=== PATIENT | female | born 1995 | race Caucasian/White ===

== ENCOUNTER 2017-05-20 11:10 | Emergency (ER) | payer BC ==
[~2017-05-20] VITALS: Wt 56.1 kg
[~2017-05-20 11:10] MED LIST: FERR-18 PO; FOLI-49 PO; PREN1TAB49 PO
--- NOTE | 2017-05-20 12:23 | ERD ---
ER Documentation Chief Complaint Chief Complaint 8 WEEKS WITH SPOTTING HPI 18-year-old female who is A2 8 weeks is presenting with vaginal bleeding, as well as pelvic pain starting today. Patient reports a similar episode occurred when she was 4 weeks with evidence of from a fall, today she comes in with suprapubic pelvic cramping, vaginal bleeding is of regular And is of bright red blood. She states that she fell 4 weeks ago and then she had an ultrasound done with her OB that showed that she was no heartbeat and was told that this will likely result in a miscarriage that she missed her appointment to follow-up with them because her daughter became sick and was admitted to the hospital. She denies any fevers, chills, chest pain, shortness breath or dizziness. Patient's OB is Dr. Lee. ROS All systems reviewed and are negative except as per history of present illness. Medications Home Meds Active Scripts Cephalexin* (Keflex*) 500 Mg Capsule, 500 MG PO TID for 7 Days, CAP Prov:GRAYSON KAUR PA-C 05/20/17 Reported Medications Ferrous Sulfate (Iron) 325 Mg Tablet, 325 MG PO DAILY 07/08/11 Folic Acid* (Folic Acid*) 1 Mg Tablet, 1 MG PO DAILY 07/08/11 Vits W-Ca,Fe,Fa(<1MG) () 1 Tab Tablet, 1 TAB PO DAILY 07/01/11 Allergies Allergies: Coded Allergies: No Known Allergy (Unverified , 02/25/13) PMhx/Soc History of Surgery: No Anesthesia Reaction: No Hx Neurological Disorder: No Hx Respiratory Disorders: No Hx Cardiac Disorders: No Hx Psychiatric Problems: No Hx Miscellaneous Medical Probl: No Hx Alcohol Use: No Hx Substance Use: No Hx Tobacco Use: No Physical Exam Vitals Vital Signs Date Time Temp Pulse Resp B/P Pulse Ox O2 Delivery O2 Flow Rate FiO2 05/20/17 11:13 99.0 74 18 123/82 99 Physical Exam General: Well-developed, well-nourished. The patient appears in no acute distress. HEENT: Head is normocephalic, atraumatic. No scleral icterus. Neck: Supple. Nontender. Lungs: Clear to auscultation. Normal air movement. Heart: Regular rate and rhythm. S1 and S2 are normal. No murmurs, gallops, or rubs. Abdomen: Soft, nontender, nondistended. Bowel sounds are normoactive. Extremities: No clubbing or cyanosis. Normal pulses. Moving extremities x 4. No weakness. Neurologic: Alert and oriented 3. No focal deficits. Skin: Normal turgor. No rash or lesions. Result Diagram: 05/20/17 1245 Results 24 hrs DIAGNOSTIC IMAGING REPORT Patient: JUSTO TAYLOR : 1995 Age: 21 Sex: F MR #: [id number] DOS: 05/20/17 1212 Ordering MD: GRAYSON KAUR PA-C Location: [facility] Room/Bed: PROCEDURE: US OB. CLINICAL INDICATION: Vaginal bleeding TECHNIQUE: Transabdominal and transvaginal views of the pelvis are available for review. COMPARISON: No prior studies are available for comparison. FINDINGS: There is an intrauterine gestation with the crown-rump length measuring 1.9 cm, corresponding to a gestational age of 8 weeks and 0 days. There is a second pole and second yolk sac noted within the same gestational sac. The pole measures 0.7 cm. There are no heart tones noted in the second embryo. The heart rate is noted at 168 bpm. The right ovary is normal and measures 2.9 x 1.8 x 2.3 cm. The left ovary was not visualized. There is no free fluid. RPTAT: AA IMPRESSION: Live intrauterine with an estimated gestational age of 8 weeks and 0 days, based on ultrasound measurements. Probable second nonviable embryo noted. LUANN based on ultrasound measurements is 12/30/17. Close follow-up is recommended. .Shawn Knight MD, MD Date Time Electronically viewed and signed by .Shawn Kinght MD, MD on 05/20/2017 13: 47 .S/ CC: GRAYSON KAUR PA-C Laboratory Tests Test 05/20/17 12:45 White Blood Count 9.010^3/ul Red Blood Count 4.3110^6/ul Hemoglobin 11.7g/dl Hematocrit 35.2% Mean Corpuscular Volume 81.7fl Mean Corpuscular Hemoglobin 27.1pg Mean Corpuscular Hemoglobin Concent 33.2g/dl Red Cell Distribution Width 16.2% Platelet Count 71484^3/UL Mean Platelet Volume 10.2fl Neutrophils % 60.4% Lymphocytes % 29.3% Monocytes % 8.2% Eosinophils % 1.8% Basophils % 0.2% Nucleated Red Blood Cells % 0.0/100WBC Neutrophils # 5.410^3/ul Lymphocytes # 2.610^3/ul Monocytes # 0.710^3/ul Eosinophils # 0.210^3/ul Basophils # 0.010^3/ul Nucleated Red Blood Cells # 0.010^3/ul Urine Color YELLOW Urine Clarity SLIGHTLY CLOUDY Urine pH 5.0 Urine Specific [place] 1.023 Urine Ketones NEGATIVEmg/dL Urine Nitrite NEGATIVEmg/dL Urine Bilirubin NEGATIVEmg/dL Urine Urobilinogen NEGATIVEmg/dL Urine Leukocyte Esterase 1+Toma/ul Urine Microscopic RBC 3/HPF Urine Microscopic WBC 9/HPF Urine Squamous Epithelial Cells FEW/HPF Urine Bacteria FEW/HPF Urine Hemoglobin 2+mg/dL Urine Glucose NEGATIVEmg/dL Urine Total Protein NEGATIVEmg/dl Beta HCG, Quantitative 84348.0mIU/ml Procedures/MDM 18-year-old female comes to the emergency department with 2 embryos, there is one with positive heart tones, and the other is not. The patient has an OB, I have arranged follow-up for her either tomorrow or the following day for reevaluation further management. The patient's ABO Rh status is positive, there is no indication for RhoGam. I spoke with SERENE Solomon, who works with her OB, Dr. Lee, who states she may follow-up tomorrow. She is hemodynamically stable, with normal vital signs. Urine does show 8 white blood cells positive leukocyte esterase and we treated for UTI given her and suprapubic pain. At this time and there is no evidence of ectopic , hemodynamic instability and the patient will be discharged. Departure Diagnosis: Primary Impression: Vaginal bleeding in patient at less than 20 weeks gestation Additional Impression: UTI (urinary tract infection) Condition: GRAYSON Santos PA-C May 20, 2017 12:23
[2017-05-20 12:52] LABS: BASOPHILS % 0.2 % (0.0-2.0); EOSINOPHILS # 0.2 10^3/ul (0.0-0.5); EOSINOPHILS % 1.8 % (0.0-7.0); HEMATOCRIT 35.2 % (37.0-47.0); HEMOGLOBIN 11.7 g/dl (12.0-16.0); LYMPHOCYTES # 2.6 10^3/ul (0.8-2.9); LYMPHOCYTES % 29.3 % (15.0-51.0); MEAN CORPUSCULAR HEMOGLOBIN 27.1 pg (29.0-33.0); MEAN CORPUSCULAR HGB CONC 33.2 g/dl (32.0-37.0); MEAN CORPUSCULAR VOLUME 81.7 fl (82.0-101.0); MEAN PLATELET VOLUME 10.2 fl (7.4-10.4); MONOCYTE # 0.7 10^3/ul (0.3-0.9); MONOCYTES % 8.2 % (0.0-11.0); NEUTROPHIL # 5.4 10^3/ul (1.6-7.5); NEUTROPHILS % 60.4 % (39.0-77.0); PLATELET COUNT 330 10^3/UL (140-415); RED BLOOD COUNT 4.31 10^6/ul (4.20-5.40); RED CELL DISTRIBUTION WIDTH 16.2 % (11.5-14.5)
[2017-05-20 12:59] LABS: ADD UMIC YES; UR ASCORBIC ACID 20 mg/dL (NEGATIVE); UR BACTERIA FEW /HPF (NONE SEEN); UR BILIRUBIN (Dip) NEGATIVE (NEGATIVE); UR BLOOD (Dip) 2+ mg/dL (NEGATIVE); UR CLARITY SLIGHTLY CLOUDY (CLEAR); UR COLOR YELLOW (YELLOW); UR GLUCOSE (Dip) NEGATIVE (NEGATIVE); UR KETONES (Dip) NEGATIVE (NEGATIVE); UR LEUKOCYTE ESTERASE (Dip) 1+ Leu/ul (NEGATIVE); UR NITRITE (Dip) NEGATIVE (NEGATIVE); UR RBC 3 /HPF (0-5); UR SPECIFIC GRAVITY (Dip) 1.023 (1.003-1.030); UR SQUAMOUS EPITHELIAL CELL FEW /HPF (FEW); UR TOTAL PROTEIN (Dip) NEGATIVE (NEGATIVE); UR UROBILINOGEN (Dip) NEGATIVE (NEGATIVE)
--- NOTE | 2017-05-20 13:48 | RADRPT ---
PROCEDURE: US OB. CLINICAL INDICATION: Vaginal bleeding TECHNIQUE: Transabdominal and transvaginal views of the pelvis are available for review. COMPARISON: No prior studies are available for comparison. FINDINGS: There is an intrauterine gestation with the crown-rump length measuring 1.9 cm, corresponding to a g estational age of 8 weeks and 0 days. There is a second pole and second yolk sac noted within the same gestational sac. The po le measures 0.7 cm. There are no heart tones noted in the second embryo. The heart rate is noted at 168 bpm. The right ovary is normal and measures 2.9 x 1.8 x 2.3 cm. The left ovary was not visualized. There is no free fluid. RPTAT: AA IMPRESSION: Live intrauterine with an estimated gestational age of 8 weeks and 0 days, based on ultras ound measurements. Probable second nonviable embryo noted. LUANN based on ultrasound measurements is 12/30/17. Close follow-up is recommended. .Shawn Knight MD, MD Date Time Electronically viewed and signed by .Shawn Knight MD, MD on 05/20/2017 13:47 .S/
[2017-05-20] MEDS ORDERED: CEPH-443 PO (14:34)
== END 2017-05-20 14:52 | disposition home or self-care (01) ==
LOC: FTE 11:10
DX: O20.9 Hemorrhage in early pregnancy, unspecified (principal); O23.41 Unspecified infection of urinary tract in pregnancy, first trimester; R10.2 Pelvic and perineal pain; Z3A.08 8 weeks gestation of pregnancy
CPT/HCPCS: 76801; 76817; 81001; 84702; 85025; 86900; 86901

== ENCOUNTER 2017-10-09 18:04 | Outpatient (CLI) | END 2017-10-09 23:05 | disposition home or self-care (01) ==

== ENCOUNTER 2018-10-12 19:09 | Emergency (ER) | payer BC ==
[~2018-10-12] VITALS: Ht 157.5 cm; Wt 60.0 kg
[~2018-10-12 19:09] MED LIST changes: +LEVE500S8 PO
[2018-10-12 19:14] VITALS: Ht 157.5 cm; Wt 60.0 kg
[2018-10-12] MEDS ORDERED: morphine 4 MG/ML VIAL IV STA (20:02)
[2018-10-12] MEDS ORDERED: ONDANSETRON 4 MG INJ IV STA (20:02)
[2018-10-12] MEDS ORDERED: LORAZEPAM 2 MG INJ IV STA (20:02)
[2018-10-12] MEDS ORDERED: LEVETIRACETAM 1000 MG (PMX) 100 ML IVPB STA (20:02)
[2018-10-12] MEDS ORDERED: CEPH-443 PO (22:23)
[2018-10-13 01:50] VITALS: BP 126/84; PULSE 85; RESP 21
--- NOTE | 2018-10-14 06:20 | ERD ---
ER Documentation Chief Complaint Chief Complaint SEIZURE LASTING APPROX 5 MIN. HPI This is a 22-year-old female with a past medical history of seizure disorder. The patient takes Keppra. The patient just prior to arrival had a witnessed tonic clonic seizure. The patient states she does not remember the seizure activity but she did lose urinary incontinence did not bite her tongue. Bystanders stated the seizure lasted for roughly 5 minutes. The patient indicates her last seizure was roughly 1 month ago. The patient indicates she has frequent seizures on a monthly basis usually just prior to her menstrual cycle. She denies a headache. She did not hit her head during the seizure activity. She was sitting down when the seizure activity occurred. ROS All systems reviewed and are negative except as per history of present illness. Medications Home Meds Active Scripts Cephalexin* (Keflex*) 500 Mg Capsule, 500 MG PO QID for 5 Days, CAP Prov:BLAKE MAXWELL MD 10/12/18 Reported Medications Levetiracetam* (Keppra*) 500 Mg/5 Ml Solution, 1000 MG PO BID, BOTTLE 10/09/17 Discontinued Reported Medications Ferrous Sulfate (Iron) 325 Mg Tablet, 325 MG PO DAILY 07/08/11 Folic Acid* (Folic Acid*) 1 Mg Tablet, 1 MG PO DAILY 07/08/11 Vits W-Ca,Fe,Fa(<1MG) () 1 Tab Tablet, 1 TAB PO DAILY 07/01/11 Allergies Allergies: Coded Allergies: No Known Allergy (Unverified , 10/12/18) PMhx/Soc Medical and Surgical Hx: pt denies Surgical Hx History of Surgery: No Anesthesia Reaction: No Hx Neurological Disorder: Yes (SZ) Hx Respiratory Disorders: No Hx Cardiac Disorders: No Hx Psychiatric Problems: No Hx Miscellaneous Medical Probl: No Hx Alcohol Use: No Hx Substance Use: No Hx Tobacco Use: No Smoking Status: Never smoker Physical Exam Vitals Vital Signs Date Temp Pulse Resp B/P (MAP) Pulse Ox O2 O2 Flow FiO2 Time Delivery Rate 10/13/18 98.4 85 21 126/84 98 Room Air 01:50 (98) 10/12/18 78 16 100/68 99 Room Air 23:44 (79) 10/12/18 97.6 97 16 132/71 97 19:14 (91) Physical Exam Constitutional:Well-developed. Well-nourished. HEENT:Normocephalic. Atraumatic with no nasal septal hematoma no hemotympanum.Pupils were equal round reactive to light. Moist mucous membranes.No tonsillar exudates. Neck: No nuchal rigidity. No lymphadenopathy. No posterior cervical spine tenderness or step-offs. Respiratory: Not using accessory muscles of respiration.Lungs were clear to auscultation bilaterally. No rhonchi. No rales. No wheezing. Cardiovascular: Regular rate regular rhythm.No murmurs. No rubs were appreciated.S1, S2 normal. Distal pulses are palpable 2+ bilaterally. GI: Abdomen was soft. Nontender. Non Distended. No pulsatile abdominal masses or bruits. No rebound. No guarding. Bowel sounds were present and normal. Muscle skeletal: Full range of motion of both the upper and lower extremities bilaterally.Normal muscle tone.No assymetrical calf tenderness or swelling. Skin: No petechia, no purpura. No lesions on the palms or the soles of the feet. No maculopapular rash. NEURO: Patient was alert, awake, orientated x3.No facial droop. Gait observed and normal with no ataxia.Speech had regular rate and rhythm. No focal neurological deficits. Result Diagram: 10/12/18200810/12/182008 Results 24 hrs Laboratory Tests Test 10/12/18 20:00 10/12/18 20:03 10/12/18 20:09 Urine Color YELLOW Urine Clarity SLIGHTLY CLOUDY Urine pH 5.0 Urine Specific [place] 1.024 Urine Ketones TRACE mg/dL Urine Nitrite NEGATIVE mg/dL Urine Bilirubin NEGATIVE mg/dL Urine Urobilinogen NEGATIVE mg/dL Urine Leukocyte Esterase 2+ Toma/ul Urine Microscopic RBC 5 /HPF Urine Microscopic WBC 48 /HPF Urine Squamous Epithelial Cells FEW /HPF Urine Bacteria FEW /HPF Urine Mucus MANY /HPF Urine Hemoglobin NEGATIVE mg/dL Urine Glucose NEGATIVE mg/dL Urine Total Protein 2+ mg/dl POC Beta HCG, Qualitative NEGATIVE White Blood Count 6.2 10^3/ul Red Blood Count 3.96 10^6/ul Hemoglobin 11.0 g/dl Hematocrit 33.5 % Mean Corpuscular Volume 84.6 fl Mean Corpuscular Hemoglobin 27.8 pg Mean Corpuscular 32.8 g/dl Hemoglobin Concent Red Cell Distribution Width 12.5 % Platelet Count 298 10^3/UL Mean Platelet Volume 9.9 fl Immature Granulocytes % 0.200 % Neutrophils % 56.6 % Lymphocytes % 34.0 % Monocytes % 6.9 % Eosinophils % 1.8 % Basophils % 0.5 % Nucleated Red Blood Cells % 0.0 /100WBC Immature Granulocytes # 0.010 10^3/ul Neutrophils # 3.5 10^3/ul Lymphocytes # 2.1 10^3/ul Monocytes # 0.4 10^3/ul Eosinophils # 0.1 10^3/ul Basophils # 0.0 10^3/ul Nucleated Red Blood Cells # 0.0 10^3/ul Prothrombin Time 14.0 Sec Prothrombin Time Ratio 1.1 INR International 1.07 Normalized Ratio Activated Partial Thromboplast 25.1 Sec Time Sodium Level 141 mmol/L Potassium Level 3.6 mmol/L Chloride Level 108 mmol/L Carbon Dioxide Level 23 mmol/L Anion Gap 10 Blood Urea Nitrogen 13 mg/dl Creatinine 0.61 mg/dl Est Glomerular Filtrat > 60 mL/min Rate mL/min Glucose Level 103 mg/dl Calcium Level 10.0 mg/dl Total Bilirubin 0.2 mg/dl Direct Bilirubin 0.00 mg/dl Indirect Bilirubin 0.2 mg/dl Aspartate Amino 22 IU/L Transf (AST/SGOT) Alanine 20 IU/L Aminotransferase (ALT/SGPT) Alkaline Phosphatase 79 IU/L Total Protein 8.1 g/dl Albumin 4.7 g/dl Globulin 3.40 g/dl Albumin/Globulin Ratio 1.38 Current Medications Medications Dose Sig/Andres Start Time Status Last (Trade) Ordered Route PRN Stop Time Admin Dose Reason Admin Lorazepam 1 mg ONCE STAT 10/12/18 DC 10/12/18 (Ativan) IV 20:02 20:12 10/12/18 20:04 100 ml @ ONCE STAT 10/12/18 DC 10/12/18 Levetiracetam 400 mls/hr IVPB 20:02 20:20 10/12/18 20:16 Morphine 4 mg ONCE STAT 10/12/18 DC 10/12/18 Sulfate IV 20:02 20:12 (morphine) 10/12/18 20:04 Ondansetron 4 mg ONCE STAT 10/12/18 DC 10/12/18 HCl (Zofran IV 20:02 20:12 Inj) 10/12/18 20:04 Procedures/MDM This is a very pleasant 22-year-old female that presented to the emergency department after witnessed tonic clonic seizure. The patient was not postictal. She was placed on a mineralogy professor IV access was established. The patient was complaining of a sensation of dizziness and felt as though she was going to have another seizure. She states this is an aura prior to her seizure activity. Therefore she received 1 mg of Ativan intravenously. She had no severe left leg abnormalities. The patient did have a urinary tract infection and states she been complaining of mild frequency urgency and dysuria. She will be sent home with Keflex. Observation Note: Time: 4 hours Family Hx: No Hypertension Evaluation: Multiple exams showed improving symptoms and no evidence of further seizure activity. During the observation. The patient states that she was complaining of myalgias and was given intravenous morphine and Zofran for analgesic control. No evidence of an infectious process and the patient did state the myalgias are common after her seizure activity. She received intravenous Keppra while in the emergency department with no further seizure activity as stated above. The patient was discharged home in fair condition. They were instructed to return to the emergency department at any time if there was any worsening of their condition. The patient stated they would follow up with their PCP in the next 24-48 hours to initiate a suitable medication regimen under the care of their PCP as well as to allow their PCP to monitor any drug reactions. The patient was discharged home with prescriptions after they gave informed consent to the new medication. They were also fully informed by myself on the adverse effects and adverse drug interactions in order to provide adequate safeguards to prevent possible adverse reactions to medications. Departure Diagnosis: Primary Impression: Seizure disorder Additional Impression: Urinary tract infection Condition: Fair Patient Instructions: Urinary Tract Infections in Women, Seizure, Recurrent [Adult] BLAKE MAXWELL MD Oct 14, 2018 06:18
== END 2018-10-13 01:50 | disposition home or self-care (01) ==
LOC: E/R 19:09
DX: G40.909 Epilepsy, unspecified, not intractable, without status epilepticus (principal); N39.0 Urinary tract infection, site not specified; R40.2142 Coma scale, eyes open, spontaneous, at arrival to emergency department; R40.2252 Coma scale, best verbal response, oriented, at arrival to emergency department; R40.2362 Coma scale, best motor response, obeys commands, at arrival to emergency department
CPT/HCPCS: 36415; 80053; 81001; 81025; 85025; 85610; 85730; 96374; 96375; J1953; J2060; J2270; J2405; Z7502